=== PATIENT | female | born 1985 | race African-American/Black ===

== ENCOUNTER 2018-02-12 13:08 | Emergency (ER) | payer MEDICAID ==
[~2018-02-12] VITALS: Ht 165.1 cm; Wt 63.5 kg
[2018-02-12 13:19] VITALS: Ht 165.1 cm; Wt 63.5 kg
[2018-02-12 13:47] VITALS: BP 132/95
== END 2018-02-12 13:47 | disposition home or self-care (01) ==
LOC: ED 13:08
DX: F15.20 Other stimulant dependence, uncomplicated (principal); R07.89 Other chest pain; R06.02 Shortness of breath; Z00.01 Encounter for general adult medical examination with abnormal findings

== ENCOUNTER 2020-05-01 12:33 | Emergency (ER) | payer MEDICAID ==
[~2020-05-01] VITALS: Ht 165.1 cm; Wt 57.2 kg
[2020-05-01 12:40] VITALS: Ht 165.1 cm; Wt 57.2 kg
[2020-05-01 13:35] LABS: PLATELET COUNT 226 x10^3mcL (130-400); RED CELL DISTRIBUTION WIDTH 14.5 % (11.5-14.5)
[2020-05-01 13:37] LABS: BASOPHIL % 3.5 % (0-2)
[2020-05-01 13:50] LABS: CALCIUM 8.7 mg/dL (8.5-10.1); CARBON DIOXIDE 22.3 mmol/L (21-32); CHLORIDE SERUM 104 mmol/L (98-107); CREATININE SERUM 0.6 mg/dL (0.6-1.0); GFR1 > 60 mL/min; GLUCOSE SERUM 96 mg/dL (74-106); SODIUM SERUM 133 mmol/L (136-145)
[2020-05-01 13:55] LABS: ALBUMIN 3.6 g/dL (3.4-5.0); ALKALINE PHOSPHATASE 51 U/L (46-116); ALT/SGPT 18 U/L (14-59); AST/SGOT 12 U/L (15-37); BILIRUBIN TOTAL 0.26 mg/dL (0.20-1.00); TOTAL PROTEIN, SERUM 6.9 g/dL (6.4-8.2)
[2020-05-01 14:48] VITALS: BP 106/59
== END 2020-05-01 14:48 | disposition home or self-care (01) ==
LOC: ED 12:33
PROVIDERS: Emergency Medicine
DX: R56.9 Unspecified convulsions (principal)